=== PATIENT | female | born 1995 | race Caucasian/White ===

== ENCOUNTER 2020-04-29 08:07 | Emergency (ER) | payer OTHER, SELFPAY ==
[2020-04-29 08:15] VITALS: BP 147/95; PULSE 97; RESP 20; TEMP 37.3; O2SAT 97; BMI 33.3
--- NOTE | 2020-04-29 08:22 | DI.RAD.S_ITS ---
PROCEDURE: XR CHEST 1V INDICATIONS: chest pain TECHNIQUE: One view of the chest was acquired. COMPARISON: None. FINDINGS: Surgical changes and devices: EKG leads are present overlying the chest. Lungs and pleura: Lungs are clear. No pleural effusion or pneumothorax. Mediastinum: Mediastinal contours appear normal. Heart size is normal. Bones and chest wall: No suspicious bony lesions. Overlying soft tissues appear unremarkable. IMPRESSION: No acute cardiopulmonary process demonstrated radiographically. All Dictated by: Enzo Watson M.D. on 04/29/2020 at 8:43 Approved by: Enzo Watson M.D. on 04/29/2020 at 8:46
--- NOTE | 2020-04-29 08:33 | ED_ITS ---
HPI - Chest Pain General Chief Complaint: Chest Pain Stated Complaint: Chest pain,abomdinal pain Time Seen by Provider: 04/29/20 08:33 Source: patient Mode of arrival: Ambulatory Limitations: no limitations History of Present Illness HPI narrative: CC: Chest and abdominal pain HPI: The patient is a 24-year-old female who presents to the emergency department with a complaint of chest pain that started on Wednesday while they were camping and evolved me and radiated down into her upper abdomen. At the current time she is not having any chest pain or abdominal pain. She informed me that she suffers from bulimia and has been forcing herself to vomit over the last few days. She denies any hematemesis or coffee-ground emesis. She admits to an intense episodes of indigestion and heartburn. She has had no fall or injury. Most of the pain is located in the epigastrium. She has had no significant diarrhea with normal bowel movements. Normally she does not have any nausea or vomiting other than that which she is induced. She denies being stating that her last menstrual period was 1 and half weeks ago. The pain does not seem to get worse with eating. She describes the chest pain as initially being sharp but then it becomes dull and achy. It is not crampy in nature. The discomfort does not significantly radiate to her back neck jaw shoulders arm. She admits to history of bulimia denies a history of asthma hypertension diabetes mellitus pancreatitis. She states that she was drinking alcohol when she developed the pain and discomfort. She does not smoke or use marijuana products. She does not smoke cigarettes vapor chew tobacco. Related Data Home Medications Medication Instructions Recorded Confirmed fluoxetine [Prozac] 40 mg PO DAILY 04/29/20 04/29/20 Previous Rx's Medication Instructions Recorded ondansetron HCl [Zofran] 4 mg PO Q6H PRN #10 tab 04/29/20 pantoprazole [Protonix] 40 mg PO DAILY #20 tab 04/29/20 sucralfate [Carafate] 10 ml PO QID PRN #420 ml 04/29/20 Allergies Allergy/AdvReac Type Severity Reaction Status Date / Time latex [LATEX] Allergy Unknown HIVES Verified 04/19/19 11:34 Sulfa (Sulfonamide Allergy Unknown Verified 04/19/19 11:34 Antibiotics) [SULFA (SULFONAMIDE ANTIBIOTICS)] Review of Systems Review of Systems Narrative: REVIEW OF SYSTEMS: CONSTITUTIONAL: The patient denies any recent change in weight but has been gagging herself in making herself vomit. She denies any fever chills or sweats. NEUROLOGICAL: She denies any headache numbness tingling paresthesias anesthesia is paresis or paralysis. She has had no disequilibrium or balance being off. EENT: She denies any nasal drainage sinus congestion sore throat or dysphagia. CARDIO-PULMONARY: She has had chest pain as described but no palpitations dizziness feeling faint shortness of breath or cough. HEMOTOLOGICAL: She has had no bleeding or bruising problems. GASTROINTESTINAL: She has had no significant nausea vomiting diarrhea change in bowel habits other than that which she has induced herself. She has not been anorexic. GENITAL URINARY: She denies any urinary symptoms. She denies being stating that her last menstrual period is 1 and half weeks ago. MUSCULOSKELETAL/ RHEUMATOLOGICAL: She denies any back pain. DERMATOLOGICAL: She has had no rash purpura or petechia Patient History Social History Smoking Status: Never smoker Smoking Status: Never smoker alcohol intake frequency: a few times a week Substance Use Type: marijuana Exam Narrative Exam Narrative: PHYSICAL EXAM: CONSTITUTIONAL: Awake, Alert, Oriented, Coherent, Cooperative in NAD. Does not appear toxic or ill. HEAD: AT/NC EENT: PERRL, FROM of eyes, no discharge, no conjunctival pallor or injection NOSE:No epistaxis or nasal drainage, patient's nose and upper lip is mildly erythematous along the left nasal had a lot I and adjacent lip. MOUTH:Oral mucosa is moist and pink, posterior pharynx is without erythema or exudate. NECK: Supple, no obvious JVD, Trachea is midline without stridor, no palpable LN. SPINE: Palpationof the cervical, Thoracic, Lumbar or Sacral spine reveals no gross deformity or tenderness. No CVA tenderness. THORAX: No deformity, retractions, chest wall tenderness. On palpation of the city sternum and lower sternum as well as the adjacent for lower right and left ribs is the location with the patient most commonly feels her chest pain and discomfort. The abdominal pain is usually in the epigastrium. LUNGS: Clear, symmetrical breath sounds without respiratory distress. HEART: Normal heart tones, regular rhythm and rate without murmur. ABDOMEN: Soft, non-tender, normal bowel sounds without guarding, rebound, rigidity or palpable mass. LYMPHATIC: no palpable lymph nodes or spleen. EXTREMITIES: No edema, deformity, tenderness or cyanosis. SKIN: No rash, bruising, petechiae or purpura. NEURO: Awake, alert, oriented, conversive, cranial nerves II-XII are symmetrical , moves all 4 extremities and is ambulatory. MENTAL HEALTH: Does not appear anxious or depressed. She is volunteering information especially that related to her bulimia. Initial Vital Signs Initial Vital Signs: Vital Signs Temperature 99.2 F 04/29/20 08:15 Pulse Rate 97 H 04/29/20 08:15 Respiratory Rate 20 04/29/20 08:15 Blood Pressure 147/95 H 04/29/20 08:15 Pulse Oximetry 97 04/29/20 08:15 Course Course Course Narrative: 1014: The patient's chest x-ray reveals no acute cardiopulmonary pathology. Her her laboratory chemistries reveal no acute abnormality. The patient will be discharged home to be seen in follow-up by her primary care physician. Orders Ordered: ED Orders 04/29/20 10:35 Consult to [facility] - Alterations Expert Stat Discontinued Medications Sodium Chloride (Normal Saline 0.9%) 1,000 mls @ 1,000 mls/hr IV BOLUS ONE Stop: 04/29/20 09:46 Last Infusion: 04/29/20 10:23 Dose: 0 mls/hr Documented by: Admin: 04/29/20 09:15 Dose: 1,000 mls/hr Documented by: JARVIS Pantoprazole Sodium (Protonix) 40 mg PO NOW ONE Stop: 04/29/20 10:16 Last Admin: 04/29/20 10:29 Dose: 40 mg Documented by: JARVIS Sucralfate (Carafate) 1 gm PO [facility] Last Admin: 04/29/20 10:29 Dose: 1 gm Documented by: JARVIS Vital Signs Vital signs: Vital Signs - 8 hr 04/29/20 11:08 Pulse Rate 70 Respiratory Rate 17 Blood Pressure [Left Arm] 108/72 Pulse Oximetry 98 MDM - Chest Pain Medical Records Data Attestation: I reviewed the patient's medical records. Lab Data Attestation: I reviewed the patient's lab results. Result diagrams: 04/29/20 08:20 04/29/20 08:20 Labs: Lab Results 04/29/20 04/29/20 04/29/20 Range/Units 08:20 08:20 08:20 WBC 8.3 (4.5-11.0) X10^3/uL RBC 4.58 (4.0-5.2) X10^6/uL Hgb 14.1 (12.0-16.0) g/dL Hct 39.9 (36-46) % MCV 87.0 (80-100) fL MCH 30.7 (26-34) PG MCHC 35.3 (30-36) % RDW 12.4 (11.6-14.8) % Plt Count 240 (150-400) X10^3/uL Neut % (Auto) 61.0 (50-75) % Lymph % (Auto) 23.6 L (25-40) % [place] % (Auto) 5.2 (3-14) % Eos % (Auto) 10.0 H (2-4) % Baso % (Auto) 0.2 (0-2) % Neut # (Auto) 5000 (4902-0622) /uL Lymph # (Auto) 2000 (2285-5649) /uL [place] # (Auto) 400 (0-900) /uL Eos # (Auto) 800 H (0-450) /uL Baso # (Auto) 0 (0-100) /uL PT 10.7 (10.1-12.7) SECONDS INR 0.9 (0.9-1.3) APTT 30 (26.4-36.2) SECONDS Sodium 137 (137-145) mmol/L Potassium 3.8 (3.4-5.1) mmol/L Chloride 104 (98-107) mmol/L Carbon Dioxide 24 (22-32) mmol/L BUN 17 (7-17) mg/dL Creatinine 0.77 (0.52-1.04) mg/dL Estimated GFR > 60.0 (>60) mL/min BUN/Creatinine Ratio 22.1 H (6-22) Glucose 102 H (70-100) mg/dL Lactate (0.7-2.1) mmol/L Calcium 9.1 (8.4-10.2) mg/dL Total Bilirubin 0.5 (0.2-1.3) mg/dL AST 49 H (14-36) IU/L ALT 42 H (<35) IU/L Alkaline Phosphatase 55 (38-126) U/L Total Creatine Kinase 373 H (30-135) U/L CK-MB (CK-2) 1.18 (<2.37) ng/mL CK-MB (CK-2) Rel Index 0.3 L (1.5-5.0) % Troponin I < 0.012 (0.01-0.034) ng/mL Total Protein 7.3 (6.3-8.2) g/dL Albumin 4.5 (3.5-5.0) g/dL Globulin 2.8 (1.7-4.1) g/dL Albumin/Globulin Ratio 1.6 (1.0-2.8) Lipase 66 (23-300) U/L / Range/Units 08:20 WBC (4.5-11.0) X10^3/uL RBC (4.0-5.2) X10^6/uL Hgb (12.0-16.0) g/dL Hct (36-46) % MCV (80-100) fL MCH (26-34) PG MCHC (30-36) % RDW (11.6-14.8) % Plt Count (150-400) X10^3/uL Neut % (Auto) (50-75) % Lymph % (Auto) (25-40) % [place] % (Auto) (3-14) % Eos % (Auto) (2-4) % Baso % (Auto) (0-2) % Neut # (Auto) (5094-0002) /uL Lymph # (Auto) (5331-7760) /uL [place] # (Auto) (0-900) /uL Eos # (Auto) (0-450) /uL Baso # (Auto) (0-100) /uL PT (10.1-12.7) SECONDS INR (0.9-1.3) APTT (26.4-36.2) SECONDS Sodium (137-145) mmol/L Potassium (3.4-5.1) mmol/L Chloride (98-107) mmol/L Carbon Dioxide (22-32) mmol/L BUN (7-17) mg/dL Creatinine (0.52-1.04) mg/dL Estimated GFR (>60) mL/min BUN/Creatinine Ratio (6-22) Glucose (70-100) mg/dL Lactate 1.5 (0.7-2.1) mmol/L Calcium (8.4-10.2) mg/dL Total Bilirubin (0.2-1.3) mg/dL AST (14-36) IU/L ALT (<35) IU/L Alkaline Phosphatase (38-126) U/L Total Creatine Kinase (30-135) U/L CK-MB (CK-2) (<2.37) ng/mL CK-MB (CK-2) Rel Index (1.5-5.0) % Troponin I (0.01-0.034) ng/mL Total Protein (6.3-8.2) g/dL Albumin (3.5-5.0) g/dL Globulin (1.7-4.1) g/dL Albumin/Globulin Ratio (1.0-2.8) Lipase (23-300) U/L ECG Data Attestation: I personally reviewed and interpreted this ECG as follows: Interpretation: The patient's EKG obtained on April 29 at 8:19 a.m. revealed a normal sinus rhythm with a ventricular rate of 84 normal intervals QTC is 425 milliseconds normal axis. The patient has a noisy baseline. She has inverted T-waves in leads III and V1. There are no other acute diagnostic ST or T-wave changes. The patient's EKG appears normal. Discharge Plan Departure Patient Disposition: Home Clinical Impression: Atypical chest pain, Acute upper abdominal pain, Bulimia, Chest pain due to GERD Discharge Date/Time: 04/29/20 11:30 Instructions: Bulimia, DI for Gastroesophageal Reflux Disease (GERD), DI for Vomiting -- Adult Prescriptions: New sucralfate [Carafate] 100 mg/mL suspension 10 ml PO QID PRN (Reason: chest pain, indigestion heartburn) Qty: 420 RF: 0 pantoprazole [Protonix] 40 mg tablet,delayed release (DR/EC) 40 mg PO DAILY Qty: 20 RF: 1 ondansetron HCl [Zofran] 4 mg tablet 4 mg PO Q6H PRN (Reason: nausea and vomiting) Qty: 10 RF: 0 No Action fluoxetine [Prozac] 40 mg Capsule 40 mg PO DAILY RF: 0 Referrals: Sailaja Cotton PA-C [Primary Care Provider] - Stand Alone Forms: Work Release Note
[2020-04-29 08:36] LABS: INR 0.9 (0.9-1.3); Prothrombin Time 10.7 SECONDS (10.1-12.7)
[2020-04-29 08:38] LABS: Add Manual Diff / Slide Review NO; Basophils Absolute Auto 0 /uL (0-100); Basophils Percent Auto 0.2 % (0-2); Eosinophils Absolute Auto 800 /uL (0-450); Hematocrit 39.9 % (36-46); Hemoglobin 14.1 g/dL (12.0-16.0); Lymphocytes Absolute Auto 2000 /uL (1100-4500); Lymphocytes Percent Auto 23.6 % (25-40); Mean Corpuscular HGB Conc 35.3 % (30-36); Mean Corpuscular Hemoglobin 30.7 PG (26-34); Monocytes Absolute Auto 400 /uL (0-900); Monocytes Percent Auto 5.2 % (3-14); Neutrophils Absolute Auto 5000 /uL (1500-7000); PTT Partial Thromboplastin Tim 30 SECONDS (26.4-36.2); Platelet Count 240 X10^3/uL (150-400); Red Blood Cell Count 4.58 X10^6/uL (4.0-5.2); Red Cell Distribution Width 12.4 % (11.6-14.8); White Blood Cell Count 8.3 X10^3/uL (4.5-11.0)
[2020-04-29 08:39] LABS: Alanine Aminotransferase 42 IU/L (<35); Albumin 4.5 g/dL (3.5-5.0); Albumin Globulin Ratio 1.6 (1.0-2.8); Alkaline Phosphatase 55 U/L (38-126); Aspartate Aminotransferase 49 IU/L (14-36); BUN Creatinine Ratio 22.1 (6-22); Bilirubin Total 0.5 mg/dL (0.2-1.3); Blood Urea Nitrogen 17 mg/dL (7-17); Calcium 9.1 mg/dL (8.4-10.2); Carbon Dioxide 24 mmol/L (22-32); Chloride 104 mmol/L (98-107); Creatine Kinase 373 U/L (30-135); Estimated Glomerular Filt Rate > 60.0 mL/min (>60); Globulin 2.8 g/dL (1.7-4.1); Glucose 102 mg/dL (70-100); HEMOLYSIS < 15 (0-50); Lipase 66 U/L (23-300); Potassium 3.8 mmol/L (3.4-5.1); Sodium 137 mmol/L (137-145); Total Protein 7.3 g/dL (6.3-8.2)
[2020-04-29 08:40] LABS: Lactate (Lactic Acid) 1.5 mmol/L (0.7-2.1)
[2020-04-29 08:52] LABS: Troponin I < 0.012 ng/mL (0.01-0.034)
[2020-04-29 08:55] LABS: CKMB % Relative Index 0.3 % (1.5-5.0); Creatine Kinase MB 1.18 ng/mL (<2.37)
[2020-04-29 09:00] VITALS: BP 118/82; PULSE 73; RESP 16; O2SAT 100
[2020-04-29] MEDS: SODIUM CHLORIDE 0.9% 1,000 ML 1000 ML IV (09:15)
[2020-04-29 09:30] VITALS: BP 122/84; PULSE 73; RESP 18; O2SAT 100
[2020-04-29 10:00] VITALS: BP 114/76; PULSE 67; RESP 17; O2SAT 99
[2020-04-29] MEDS: SUCRALFATE 1 GM/10 ML ORAL SUSP PO (10:29)
[2020-04-29] MEDS: PANTOPRAZOLE 20 MG TABLET 40 MG PO (10:29)
[2020-04-29 11:08] VITALS: BP 108/72; PULSE 70; RESP 17; O2SAT 98
--- NOTE | 2020-04-29 12:29 | CM.SWNOTE ---
Patient is a 24 year old female who was admitted to [facility] ED on 04/29/20 for Chest/Abdominal Pain. Pt has [employer] for insurance and her PCP is Dr. Sailaja Cotton. EMR was reviewed. [employer] Consult ordered for pt's increased bulimia behaviors and voluntarily seeking MH resources. Discharge Planning/Care Management [employer] - Writing Manager Assessment Start: 04/29/20 12:14 Freq: Status: Active Protocol: Document 04/29/20 12:14 BF (Rec: 04/29/20 12:29 BF [id number]) [employer]/Writing Manager Assessment Start date 04/29/20 Visit Start Time 11:00 End date 04/29/20 Visit End Time 11:30 Total time Care Management spent on 45 min patient visit-in minutes Presenting Problem Pt presents with chest pain and chronic eating disorder Precipitating Event(s) Pt states that since COVID 19 quarantine, her typical coping mechanisms of utilizing the gym and seeing supportive friends are not available that her bullemia has been triggered and increased. Current Behavioral Health Provider(s) None, seeking counseling Include Facility, Provider, Ph. # support Psych. Hx Mental Health and Chemical denies Dependency Psychiatric Hospitalizations (date(s)/ Pt states that once when she location) was around 19 yrs old she was placed on an [facility] hold and accepted at an In MH tx facility involuntarily for 72 hours in [place] Support System(s) Pt moved from [place] with her boyfriend of 6 years and feels he is very supportive and understanding, her parents who live in [place] still, and a few local close friends. School/Work Pt works at [employer] for about the past year Legal Matters - Outstanding Issues Denies Suicidal Ideation (Plan) No Homicidal Ideation (Plan) No Intervention [employer] met bedside with pt in the ER and pt confirms that she lives on [address] with her boyfriend of 6 years and moved to [place] from [place] a couple years ago. Pt denies any hx of mental health counseling and states her eating disorder has been a struggle since about the age of 9 yrs old and that her parents had been against medications or treatment for most of her childhood until she needed to be detained with [employer] at age 19. Since then the pt has been on a few different antidepressants that have been prescribed by PCP and not a psychiatrist. Pt appears to have good insight and aware of her coping mechanisms and states that she was able to lose about 20 lbs in a healthy way of eating right and excercising until COVID 19 quarantine happened and her healthy coping skills were not available to her. Pt is aware that she has relapsed back into unhealthy eating habits of bulimia and is voluntarily seeking mental health counseling support. Pt denies any suicidal ideations and confirms that her boyfriend is very supportive and will help with placing calls and supporting her with attending appointments. Pt states she recently reached out to a mental health clinic on [address] and there was a barrier with her insurance. [employer] provided [facility] contracted individual mental health counselors in [facility] as well as [facility] Access to MH contact information including Crisis Line. [employer] encouraged pt to call the number on her insurance card to get a list of local contracted [facility] behavioral health providers. Pt appears to be aware of her triggers, positive and negative coping skills, and voluntarily seeking additional support of counseling. RA Plan Pt plans to follow up on provided MH counseling resources and calling her insurance with the help of her long time boyfriend towards establishing with an outpt MH therapist to help with her bulimia. [employer] feels pt is safe for d/c back to the community with supportive boyfriend and local friends and outpt MH resources. [employer] updated MD and RN.
== END 2020-04-29 11:30 | disposition home or self-care (01) ==
PROVIDERS: Emergency Provider Emergency Medicine; PCP Physician Assistant
DX: R07.89 Other chest pain (principal); R10.10 Upper abdominal pain, unspecified; F50.2 Bulimia nervosa; K21.9 Gastro-esophageal reflux disease without esophagitis
CPT/HCPCS: 36415; 71045; 80053; 82550; 82553; 83605; 83690; 84484; 85025; 85610; 85730; 93005; 96360; 99284

== ENCOUNTER → 2022-02-08 09:58 | Outpatient (CLI) | payer OTHER, SELFPAY | PROVIDERS: PCP Physician Assistant; Visit Provider Physician Assistant | DX: J02.9 Acute pharyngitis, unspecified (principal) | CPT/HCPCS: 87070 ==

== ENCOUNTER 2022-08-29 23:03 | Emergency (ER) | payer OTHER, SELFPAY ==
[2022-08-29 23:14] VITALS: PULSE 95; O2SAT 99
[2022-08-29 23:18] VITALS: BP 151/94; PULSE 99; RESP 18; O2SAT 96; BMI 32.8
[2022-08-29 23:30] VITALS: PULSE 87; RESP 16; O2SAT 98
[2022-08-29 23:31] VITALS: BP 129/62; PULSE 84; RESP 13; O2SAT 99
--- NOTE | 2022-08-29 23:31 | ED.ARRPALP ---
HPI - Arrhythmia/Palpitations General Chief Complaint: Arrhythmia/Palpitations Stated Complaint: heart palpitation Time Seen by Provider: 08/29/22 23:11 Source: patient Mode of arrival: Ambulatory Limitations: no limitations History of Present Illness HPI narrative: 26-year-old female who is here for evaluation of heart palpitations and feeling lightheaded. She states that last weekend she did use her albuterol inhaler more than what she normally does because of the smoke in the air. She did feel like her heart was beating fast afterwards. The symptoms happened again this evening. She did not use her albuterol today. The actual abnormal heart rhythm lasted seconds but then she felt weird for appearing time afterwards. She is currently not feeling the palpitations. Related Data Previous Rx's Medication Instructions Recorded ondansetron HCl 4 mg tablet 4 mg PO Q6H PRN nausea and 04/29/20 (Zofran) vomiting #10 tabs pantoprazole 40 mg tablet,delayed 40 mg PO DAILY #20 tabs 04/29/20 release (Protonix) sucralfate 100 mg/mL oral 10 ml PO QID PRN chest pain, 04/29/20 suspension (Carafate) indigestion heartburn #420 mL Allergies Allergy/AdvReac Type Severity Reaction Status Date / Time latex [LATEX] Allergy Unknown HIVES Verified 08/29/22 23:18 Sulfa (Sulfonamide Allergy Unknown Verified 08/29/22 23:18 Antibiotics) [SULFA (SULFONAMIDE ANTIBIOTICS)] Review of Systems Constitutional Constitutional: Reports system reviewed and no additional complaints, except as documented Cardiovascular Cardiovascular: Reports system reviewed and no additional complaints, except as documented Respiratory Respiratory: Reports system reviewed and no additional complaints, except as documented Gastrointestinal Gastrointestinal: Reports system reviewed and no additional complaints, except as documented Patient History Medical History Asthma Social History Smoking Status: Never smoker Smoking Status: Never smoker alcohol intake frequency: 0-2 drinks per day Substance Use Type: marijuana Exam Initial Vital Signs Initial Vital Signs: Vital Signs Pulse Rate 99 H 08/29/22 23:18 Respiratory Rate 18 08/29/22 23:18 Blood Pressure 151/94 H 08/29/22 23:18 Pulse Oximetry 96 08/29/22 23:18 Oxygen Delivery Method 08/29/22 23:18 Const General: cooperative and comfortable Resp Effort & Inspection: normal respiratory effort Auscultation: clear to auscultation bilaterally Cardio Rate: regular rate Rhythm: regular rhythm GI Inspection: normal to inspection Skin General: no rashes or lesions noted Neuro General: patient alert, patient awake and moves all extremities Extrem General: normal to inspection and capillary refill normal Course Orders Ordered: ED Orders 08/29/22 23:11 EKG-12 Lead Stat Discontinued Medications Lorazepam (Lorazepam 0.5 Mg Tablet) 0.5 mg PO NOW ONE Stop: 08/29/22 23:32 Last Admin: 08/29/22 23:38 Dose: 0.5 mg Documented By: LILLY Vital Signs Vital signs: Vital Signs - 8 hr 08/29/22 23:18 Pulse Rate 99 H Respiratory Rate 18 Blood Pressure 151/94 H Pulse Oximetry 96 Oxygen Delivery Method Room Air MDM - Arrhythmia/Palpitations ECG Data Attestation: I personally reviewed and interpreted this ECG as follows: Interpretation: Sinus rhythm Ventricular rate 99 Normal axis Normal QRS Normal QTC No ST T wave changes MDM Narrative Medical decision making narrative: Normal EKG, no ectopy noted on the monitors here. She was anxious and was given Ativan and this did improve her symptoms. No further workup required in the emergency department. Will have her contact her primary doctor to discuss the indications for Holter monitor. She was given return precautions. She expressed understanding and agreement. Discharge Plan Departure Patient Disposition: Home Clinical Impression: Palpitations Instructions: Arrhythmias Activity Restrictions/Additional Instructions: I recommend that you contact your primary doctor to discuss the indications for a Holter monitor. Return to the emergency department for any new or worsening symptoms. Prescriptions: No Action sucralfate [Carafate] 100 mg/mL suspension 10 ml PO QID PRN (Reason: chest pain, indigestion heartburn) Qty: 420 0RF Rx Instructions: swish in mouth and swallow; use after food/drink pantoprazole [Protonix] 40 mg tablet,delayed release (DR/EC) 40 mg PO DAILY Qty: 20 1RF ondansetron HCl [Zofran] 4 mg tablet 4 mg PO Q6H PRN (Reason: nausea and vomiting) Qty: 10 0RF Rx Instructions: 1-2 tabs every 6 hours for nausea and vomiting Referrals: Sailaja Cotton PA-C [Primary Care Provider] -
[2022-08-29] MEDS: LORazepam 0.5 MG TABLET PO (23:38)
[2022-08-30] VITALS: PULSE 79; RESP 22; O2SAT 98
== END 2022-08-30 00:28 | disposition home or self-care (01) ==
PROVIDERS: Emergency Provider Emergency Medicine; PCP Physician Assistant
DX: R00.2 Palpitations (principal)
CPT/HCPCS: 93005; 93010; 99283

== ENCOUNTER → 2024-09-03 14:02 | Outpatient (CLI) | payer OTHER, SELFPAY | PROVIDERS: PCP Physician Assistant; Visit Provider Nurse Practitioner Family | DX: J02.9 Acute pharyngitis, unspecified (principal); R09.81 Nasal congestion | CPT/HCPCS: 87070; 87147 ==